=== PATIENT | male | born 1990 | race Caucasian/White ===

== ENCOUNTER 2022-12-24 18:12 | Emergency (ER) | payer OTHER ==
[~2022-12-24] VITALS: Ht 180.3 cm; Wt 81.7 kg
== END 2022-12-24 18:33 | disposition home or self-care (01) ==
LOC: ER 18:12
DX: A52.15 Late syphilitic neuropathy (principal)
CPT/HCPCS: 99281

== ENCOUNTER 2022-12-25 09:53 | Emergency (ER) | payer OTHER ==
[~2022-12-25] VITALS: Ht 180.3 cm; Wt 81.7 kg
== END 2022-12-25 11:19 | disposition home or self-care (01) ==
LOC: ER 09:53
DX: A53.9 Syphilis, unspecified (principal)
CPT/HCPCS: 99282; C1751